=== PATIENT | female | born 1990 | race Caucasian/White ===

== ENCOUNTER 2016-08-23 06:10 | Emergency (ER) | payer OTHER ==
[~2016-08-23] VITALS: Ht 157.5 cm; Wt 57.3 kg
[~2016-08-23 06:10] MED LIST: NO ROUTINE MEDS
--- OUTSIDE RECORDS SUMMARY | 2016-08-23 06:14 | XMS REPORT | Continuity of Care Document ---
Author Author [facility] Organization 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 difficile colitis Unknown Dehydration Unknown Itching of vulva Unknown Left ankle sprain Unknown Migraine Unknown Migraine headache without aura Unknown Near syncope Unknown Screening for STD (sexually transmitted disease) Unknown Tobacco abuse Unknown UTI (urinary tract infection) Unknown UTI (urinary tract infection) Unknown Medications Current Home Medications Medication Dose Units Route Directions Days Qty Instructions Start Date No Routine Meds 12/22/15 Past Home Medications Medication Directions Ordered Status Doxycycline Monohydrate (Doxycycline) 150 Mg Tablet, 12/02/09 Discontinued None , 11/14/09 Discontinued Social History Social History Problem Response Recorded Date/Time Onset Date Status Hx Substance Use No 07/12/2016 7:21am Not Applicable Not Applicable Hx Alcohol Use Y OCC 07/12/2016 7:21am Not Applicable Not Applicable Has the pt used tobacco in the last 12 months Yes 04/18/2015 8:55am Not Applicable Not Applicable Tobacco Usage none 03/23/2015 9:24am Not Applicable Not Applicable Hospital Discharge Instructions No hospital discharge instructions. Plan of Care Discharge Date 08/07/16 2:13pm Disposition 01 DISCHARGED HOME, SELF-CARE Condition at Discharge Stable Instructions/Education Provided How to Stop Smoking (DC) Migraine Headache (ED) Cigarette Smoking and Your Health (GEN) Prescriptions See Medication Section Referrals SHERRIE MCELROY DO Additional Instructions/Education You have been given Zofran, IM Benadryl and IM Toradol in the clinic today. We have discussed smoking cessation. Stop smoking immediately. Follow with your primary care provider for recommendations regarding further headache treatment. Functional Status No functional status results. Allergies, Adverse Reactions, Alerts Allergen Type Severity Reaction Status Last Updated Oxycodone Allergy Unknown Active 08/07/16 Immunizations Query Response on File Recorded Date/Time Hx Influenza Vaccination No 04/17/15 1:51pm Hx Pneumococcal Vaccination No 04/17/15 1:51pm Hx Tetanus, Diptheria, Pertussis Y UP TO DATE 05/14/10 12:33pm Hx Influenza Vaccination No 04/17/15 1:51pm Hx Tetanus, Diptheria, Pertussis Y UP TO DATE 05/14/10 12:33pm Influenza Vaccine Hx NO 08/07/16 1:39pm Tetanus Diptheria Vaccine History UP TO DATE 08/07/16 1:39pm Vital Signs Acute Vital Signs Vital Response Date/Time Temperature (Fahrenheit) 97.2 deg F (96.8 - 99.1) 08/07/2016 1:36pm Temperature (Calculated Celsius) 36.78463 degrees C (36.0 - 37.3) 08/07/2016 1:36pm Pulse Rate (adult) 105 bpm (60 - 100) 08/07/2016 1:36pm Respiratory Rate 16 breaths/min (10 - 20) 07/12/2016 8:56am O2 Sat by Pulse Oximetry 100 % (90 - 100) 08/07/2016 1:36pm Blood Pressure 102/72 mm Hg 08/07/2016 1:36pm Height (Feet) 5 feet 07/12/2016 7:05am Height (Inches) 63.20 inches 08/07/2016 1:36pm Weight (Kilograms) 57.300 kg 08/07/2016 1:36pm Body Mass Index (BMI) 22.0 08/07/2016 1:36pm Results Laboratory Results Test Name Result Units Flags Reference Collection Date/Time Result Date/ Time Comments White Blood Count 4.5 T/MM3 4.5-11.0 07/12/2016 7:47am 07/12/2016 8: 05am Red Blood Count 4.24 M/MM3 4.00-5.20 07/12/2016 7:47am 07/12/2016 8: 05am Hemoglobin 13.4 GM/DL 12-16 07/12/2016 7:47am 07/12/2016 8:05am Hematocrit 39.0 % 36-46 07/12/2016 7:47am 07/12/2016 8:05am Mean Corpuscular Volume 92.0 UM3 80-100 07/12/2016 7:47am 07/12/2016 8: 05am Mean Corpuscular Hemoglobin 31.6 UUG 26-34 07/12/2016 7:47am 2016 8:05am Mean Corpuscular Hemoglobin Concent 34.4 GM/DL 31-37 07/12/2016 7:47am 07/12/2016 8:05am RDW Standard Deviation 39.4 FL 36.9-50.2 07/12/2016 7:47am 07/12/2016 8 :05am Platelet Count 195 T/MM3 130-400 07/12/2016 7:47am 07/12/2016 8:05am Mean Platelet Volume 9.6 UM3 9.4-12.4 07/12/2016 7:47am 07/12/2016 8: 05am Neutrophils (%) (Auto) 66.7 % H 33-66 07/12/2016 7:47am 07/12/2016 8: 05am Lymphocytes (%) (Auto) 20.9 % L 23-45 07/12/2016 7:47am 07/12/2016 8: 05am Monocytes (%) (Auto) 7.5 % 0-9.0 07/12/2016 7:47am 07/12/2016 8:05am Eosinophils (%) (Auto) 4.2 % H 0-4 07/12/2016 7:47am 07/12/2016 8:05am Basophils (%) (Auto) 0.7 % 0-2 07/12/2016 7:47am 07/12/2016 8:05am Immature Granulocyte % (Auto) 0.0 % 0.0-0.5 07/12/2016 7:47am 2016 8:05am Absolute Neutrophils (auto) 3.0 T/MM3 1.8-7.7 07/12/2016 7:47am 2016 8:05am Absolute Lymphocytes (auto) 1.0 T/MM3 1-4.8 07/12/2016 7:47am 2016 8:05am Absolute Monocytes (auto) 0.3 T/MM3 0-0.8 07/12/2016 7:47am 07/12/2016 8:05am Absolute Eosinophils (auto) 0.2 T/MM3 0-0.5 07/12/2016 7:47am 2016 8:05am Absolute Basophils (auto) 0.0 T/MM3 0-0.2 07/12/2016 7:47am 07/12/2016 8:05am Absolute Immature Granulocyte (auto 0.00 T/MM3 0.00-0.03 07/12/2016 7: 47am 07/12/2016 8:05am Icterus Index < 2 0-7 07/12/2016 7:47am 07/12/2016 8:19am Chemistry Specimen Hemolysis 17 0-25 07/12/2016 7:47am 07/12/2016 8: 19am 0-25: Specimen Exhibited No Hemolysis. Turbidity < 20 0-20 07/12/2016 7:47am 07/12/2016 8:19am Sodium Level 143 MEQ/L 134-144 07/12/2016 7:47am 07/12/2016 8:19am Potassium Level 4.3 MEQ/L 3.6-5 07/12/2016 7:47am 07/12/2016 8:19am Chloride Level 108 MEQ/L H 98-107 07/12/2016 7:47am 07/12/2016 8:19am Carbon Dioxide Level 26 MEQ/L 22-30 07/12/2016 7:47am 07/12/2016 8: 19am Anion Gap 9 MEQ/L 5-15 07/12/2016 7:47am 07/12/2016 8:19am Blood Urea Nitrogen 12.0 MG/DL 7-17 07/12/2016 7:47am 07/12/2016 8: 19am Creatinine 0.6 MG/DL L 0.7-1.2 07/12/2016 7:47am 07/12/2016 8:19am BUN/Creatinine Ratio 20 RATIO 6-26 07/12/2016 7:47am 07/12/2016 8:19am Glomerular Filtration Rate Calc 124 07/12/2016 7:47am 07/12/2016 8: 19am Glucose Level 94 MG/DL 65-110 07/12/2016 7:47am 07/12/2016 8:19am Calculated Osmolality 275 MOSM/KG 261-280 07/12/2016 7:47am 07/12/2016 8:19am Calcium Level 8.9 MG/DL 8.4-10.2 07/12/2016 7:47am 07/12/2016 8:19am Total Bilirubin 0.60 MG/DL 0.20-1.30 07/12/2016 7:47am 07/12/2016 8: 19am Alkaline Phosphatase 42 U/L 38-126 07/12/2016 7:47am 07/12/2016 8:19am Total Protein 6.9 G/DL 6.3-8.2 07/12/2016 7:47am 07/12/2016 8:19am Albumin 4.0 G/DL 3.5-5.0 07/12/2016 7:47am 07/12/2016 8:19am Globulin 2.9 G/DL 2.4-3.6 07/12/2016 7:47am 07/12/2016 8:19am Albumin/Globulin Ratio 1.4 RATIO 1.1-2.2 07/12/2016 7:47am 07/12/2016 8 :19am Aspartate Amino Transf (AST/SGOT) 16 U/L 14-36 07/12/2016 7:47am 2016 8:19am Alanine Aminotransferase (ALT/SGPT) 20 U/L 9-52 07/12/2016 7:47am 07/12 8:19am Lipase 61 U/L 23-300 07/12/2016 7:47am 07/12/2016 8:19am Urine Collection Type CLEANCATCH-MIDSTREAM 07/12/2016 7:37am 2016 8:01am Urine Color YELLOW YELLOW 07/12/2016 7:37am 07/12/2016 8:01am Urine Turbidity SL CLOUDY CLEAR 07/12/2016 7:37am 07/12/2016 8:01am Urine Specific [place] >=1.030 H 1.015-1.025 07/12/2016 7:37am 2016 8:01am Urine pH 5.0 5.0-8.0 07/12/2016 7:37am 07/12/2016 8:01am Urine Leukocyte Esterase 1+ A NEGATIVE 07/12/2016 7:37am 07/12/2016 8: 01am Urine Nitrite POSITIVE A NEGATIVE 07/12/2016 7:37am 07/12/2016 8:01am Urine Protein TRACE A NEGATIVE 07/12/2016 7:37am 07/12/2016 8:01am Urine Glucose (UA) NEGATIVE NEGATIVE 07/12/2016 7:37am 07/12/2016 8: 01am Urine Ketones NEGATIVE NEGATIVE 07/12/2016 7:37am 07/12/2016 8:01am Urine Urobilinogen 0.2 EU/DL NORMAL 07/12/2016 7:37am 07/12/2016 8: 01am Urine Bilirubin NEGATIVE NEGATIVE 07/12/2016 7:37am 07/12/2016 8: 01am Urine Blood TRACE-INTACT A NEGATIVE 07/12/2016 7:37am 07/12/2016 8: 01am Urine WBC 10-20 /HPF H 0-5 07/12/2016 7:37am 07/12/2016 8:15am Urine RBC 1-3 /HPF 0-3 07/12/2016 7:37am 07/12/2016 8:15am Urine Squamous Epithelial Cells 5-10 07/12/2016 7:37am 07/12/2016 8 :15am Urine Bacteria 2+ H NEGATIVE 07/12/2016 7:37am 07/12/2016 8:15am Urine Culture Indicated CULT REFLEXED &SETUP 07/12/2016 7:37am 10/2016 8:15am Microbiology Results Procedure Source Organism/Result Collection Date/Time Result Date/Time Result Status Urine Culture Urine, Clean Catch-Midstream ESCHERICHIA COLI 07/12/2016 8: 15am 07/14/2016 6:56am Final Procedures Procedure Status Date Provider(s) Routine venipuncture Completed 07/12/16 Comprehen metabolic panel Completed 07/12/16 Urinalysis auto w/scope Completed 07/12/16 Assay of lipase Completed 07/12/16 Complete cbc w/auto diff wbc Completed 07/12/16 Urine culture/colony count Completed 07/12/16 Urine bacteria culture Completed 07/12/16 Emergency dept visit Completed 07/12/16 Encounters Encounter Location Arrival/Admit Date Discharge/Depart Date Attending Provider Departed Emergency Room [facility] 08/07/16 1:32pm 08/07/16 2: 13pm SMITH GIBBS APRN Departed Emergency Room [facility] 07/12/16 7:02am 07/12/16 8: 56am MILLER LERMA DO Departed Emergency Room [facility] 06/24/16 6:02pm 06/24/16 7: 00pm MARTHA YOUNG APRN Recent Diagnosis
[2016-08-23 06:15] VITALS: BP 106/74; PULSE 84; RESP 20; TEMP 98.3; O2SAT 99; Ht 157.5 cm; Wt 57.3 kg
--- NOTE | 2016-08-23 06:31 | ERPDOC ---
Departure Disposition Decision Date: Aug 23, 2016 Disposition Decision Time: 06:39 Disposition: 01 DISCHARGED HOME, SELF-CARE Impression Impression Impression: Primary Impression: Strain of left trapezius muscle Encounter type: initial encounter Qualified Codes: S46.812A - Strain of other muscles, fascia and tendons at shoulder and upper arm level, left arm, initial encounter Severity: Moderate Condition: Stable Seen By: Physician only Referrals: SHERRIE MCELROY DO (PCP/Family) Follow-up for reevaluation and possible referral to physical therapy Patient Instructions: Muscle Strain (ED) Problems/Meds/Labs Reviewed?: Yes Medications reviewed and manag: Yes Additional Instructions: Recommend Aleve 2 pills 2 times a day Departure Forms: Return to Work/School Permit Return to Work/School Date: Aug 25, 2016 Follow up care ordered?: Yes Mental Status: Alert, Oriented Scripts Baclofen (Baclofen) 20 Mg Tablet 1 TAB PO TID, #15 TAB Prov: TARAN PARKINSON MD 08/23/16 Tramadol HCl (Tramadol HCl) 50 Mg Tablet 1-2 TAB PO Q6H Y for PAIN, #12 TAB Prov: TARAN PARKINSON MD 08/23/16 HPI - Upper Extremity General Chief Complaint: Upper Extremity Pain Stated Complaint: NECK/SHOULDER PAIN Time Seen by MD: 06:31 Source: patient Exam Limitations: no limitations HPI - Upper Extremity Initial Comments Patient is a 25-year-old female presents emergency room for evaluation of left shoulder pain. Patient's had waxing and waning left shoulder pain for the last month, constantly at night wakes up significantly sore. Patient saw her primary medical physician 2 weeks ago who provided her prescription for some diclofenac ointment which has not helped at all. Patient has not followed up with her primary medical physician, this morning decided that she needed to present to the ER for evaluation. Occurred At: home Onset/Timing: Constant Duration: other (1 month) Pain/Severity Scale: Now & Worst: 8/10 Pain/Injury Location: left shoulder Method of Injury/Context: unknown Allergies: Coded Allergies: oxycodone (Verified Allergy, Unknown, 08/23/16) Past History Patient Surgical History hysterectomy for uterine decensus x 2 laparoscopy x 2 Past Medical History Female: UTI, other Surgical History Reproductive/: , hysterectomy Family History Family PMH: FOUND: cancer Vaccines Hx Influenza Vaccination: No Hx Pneumococcal Vaccination: No Hx Tetanus, Diptheria, Pertuss: Yes (UP TO DATE) Social History Does patient use chewing tobac: No # of Packs/Tins per Day: 0.1 # of Years: 10 Second Hand Exposure: Yes Substance Use Type: former substance user, marijuana, amphetamines, methamphetamine Alcohol Intake: occasionally Review of Systems Constitutional Constitutional: DENIES: chills, dizziness, fever, weakness Eyes Vision: DENIES: double vision, loss of visual buchanan ENMT Sinuses: DENIES: congestion, rhinorrhea Cardiovascular Cardiac: DENIES: chest pain, dyspnea on exertion Pulmonary Respiratory: DENIES: cough, dyspnea, sputum, tachypnea GI Upper Abdomen: DENIES: nausea, pain, vomiting Lower Abdomen: DENIES: constipation, diarrhea, pain Musculoskeletal General: pain, DENIES: cramps, weakness Integumentary Skin: DENIES: color change, itching, rash Endocrine Endocrine: DENIES: heat/cold intolerance Hematologic/Lymphatic Hematologic/Lymphatic: DENIES: anemia Physical Exam General General Nourishment: well nourished, well developed General Body Habitus: well groomed Vitals and Pain First Documented Vital Signs Date Time Temp Pulse Resp B/P Pulse Ox O2 Delivery O2 Flow Rate FiO2 08/23/16 06:15 98.3 84 20 106/74 99 Room Air Weight: Kilograms: 57.300 Height (feet): 5 Height (inches): 2.00 Triage Pain Scale: RN VS reviewed by Provider: Yes Eyes (brief) Eyes Brief: found: EOMI ENMT (brief) ENMT Brief: FOUND: mucosa moist, normal dentition, NOT FOUND: nasal erythema, pharnyx erythema, tonsillar deviation Neck (brief) Neck: NOT FOUND: adenopathy, spasm, tenderness Respiratory (brief) Respiratory: FOUND: equal bilaterally Cardiovascular (brief) Cardiac: FOUND: regular rate Lymphatic (brief) Lymphatic Brief: NOT FOUND: adenopathy Fastrak Shoulder Shoulder : Shoulder: Left Inspection: NOT FOUND asymmetry, NOT FOUND deformity, NOT FOUND ecchymosis, NOT FOUND swelling Palpation: FOUND tenderness (tenderness to palpation of trapezius), NOT FOUND AC step-off, NOT FOUND deformity, NOT FOUND empty shoulder socket, NOT FOUND infraspinatus, NOT FOUND muscular spasm teres minor, NOT FOUND subscapularis, NOT FOUND supraspinatus Motion: NOT FOUND ROM limited ext. rotation, NOT FOUND ROM limited extension , NOT FOUND ROM limited flexion, NOT FOUND impingement sign Integumentary (brief) Integumentary Brief: FOUND: dry, pink, warm Neurologic (brief) Neurological Brief: FOUND: motor-no gross deficits, sensory-no gross deficits Psychiatric (brief) Psychiatric Brief: FOUND: alert, oriented Differential Diagnoses Considering: AC Separation, Rotator Cuff Strain/Tear, Sprain, Strain, Trauma Progress Results/Orders Orders Procedure Category Date Status Time Ketorolac (Toradol) PHA 08/23/16 Complete 06:45 Medications Current ED Medications Ketorolac Tromethamine (Toradol) 60 mg O ONCE IM Last administered on t 06:55; Start 08/23/16 at 06:45; Stop 08/23/16 at 06:46; Status DC TARAN PARKINSON MD Aug 23, 2016 06:31
[2016-08-23] MEDS ORDERED: BACL20TA PO (06:41)
[2016-08-23] MEDS ORDERED: TRAM50TA4 PO (06:41)
[2016-08-23] MEDS ORDERED: KETOROLAC 60mg/2ml INJECTION IM ONE (06:45)
--- NOTE | 2016-08-23 06:55 | NUR ---
TORADOL TORADOL GIVEN IM.
--- NOTE | 2016-08-23 07:10 | NUR ---
DISMISSAL NOTE DISMISSAL INSTRUCTIONS GIVEN TO PT. AND NO FURTHER QUESTIONS. PT. STATES SHE IS STARTING TO FEEL BETTER. RX. X 2 SENT HOME WITH PT. PT. LEFT ED AMBULATORY BY SELF.
== END 2016-08-23 07:10 | disposition home or self-care (01) ==
LOC: ED 06:10
DX: S46.812A Strain of other muscles, fascia and tendons at shoulder and upper arm level, left arm, initial encounter (principal); X58.XXXA Exposure to other specified factors, initial encounter; Y93.9 Activity, unspecified; Y92.009 Unspecified place in unspecified non-institutional (private) residence as the place of occurrence of the external cause; Y99.8 Other external cause status
CPT/HCPCS: 96372; 99283; J1885